=== PATIENT | male | born 1980 | race Hispanic/Latino ===

== ENCOUNTER 2020-01-12 21:02 | Emergency (ER) | payer SELFPAY ==
[~2020-01-12] VITALS: Ht 182.9 cm; Wt 83.9 kg
--- OUTSIDE RECORDS SUMMARY | 2020-01-12 21:33 | XMS REPORT | Clinical Summary ---
Author Author [facility] Organization [facility] Address Unknown Phone Unavailable Care Team Providers Care House Manager Name Role Phone Asked, No Pcp PCP Unavailable Allergies No Known Allergies Medications No known medications Active Problems Not on file Social History Date Tobacco Use Types Packs/Day Years Used Current Every Day Smoker Cigarettes 1 Smokeless Tobacco: Never Used Drinks/Week oz/Week Comments Alcohol Use occasional Yes Sex Assigned at Date Recorded Not on file Industry Job Start Date Occupation Not on file Not on file Not on file Travel End Travel History Travel Start No recent travel history available. 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
--- OUTSIDE RECORDS SUMMARY | 2020-01-12 21:33 | XMS REPORT | Clinical Summary ---
Author Author [facility] Organization [facility] Address Unknown Phone Unavailable Care Team Providers Care Solid Waste Landfill Technician Name Role Phone Michael Saul MD PCP Allergies No Known Allergies Medications End Date Status Medication Sig Dispensed Refills Start Date 01/05/2020 Discontinued (Therapy comple maura) risperiDONE (RISPERDAL) 2 Take 2 mg by 0 mg tablet mouth 2 times daily. 01/05/2020 Discontinued (Therapy comple maura) lithium carbonate Take 300 mg 0 (ESKALITH) 300 mg capsule by mouth 3 times daily with meals Take two capsules by mouth in the morning and three capsules at bedtime. . 01/05/2020 Discontinued (Therapy comple maura) gabapentin (NEURONTIN) Take 300 mg 0 300 mg capsule by mouth 3 times daily. 01/05/2020 Discontinued (Therapy comple maura) diphenhydrAMINE Take 25 mg by 0 (BENADRYL) 25 mg capsule mouth nightly at bedtime as needed for Sleep. 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 Bizarre behavior 01/04/2020 Encounters Care Team Description Date Type Specialty Constantine Hines MD Eckman, Jose Triana MD Bizarre behavior (Primary Dx); Psychosis, unspecified psychosis type; Methamphetamine abuse; Cannabis use disorder, mild, abuse; Right ankle pain, unspecified chronicity 01/03/2020 Emergency - 01/05/2020 after 01/11/2019 Immunizations Name Administration Dates Next Due Influenza, Vaccine 07/31/2018 (Deferred: Patie nt Refused) <FLUCELVAX>(Preservative- Free) Tdap (Tetanus Toxoid, 07/31/2018 Reduced Diphtheria Toxoid And Acellular Pertussis, Absorbed) Family History Relation Name Status Comments Brother 2 Alive Father Maternal Grandfather Maternal Grandmother Mother Alive Paternal Grandfather Paternal Grandmother Sister 1 Alive Social History Date Tobacco Use Types Packs/Day Years Used Current Every Day Smoker Cigarettes 1 Smokeless Tobacco: Never Used Tobacco Cessation: Ready to Quit: No; Co unseling Given: No Comments: smoking since age 14 years old Drinks/Week oz/Week Comments Alcohol Use quit drinking Not Currently Alcohol Habits Answer Date Recorded How often do you have a drink containing alcohol? Never 07/31/2018 How many drinks containing alcohol do you have on No t asked a typical day when you are drinking? How often do you have six or more drinks on one Not asked occasion? Food Insecurity Answer Date Recorded Within the past 12 months, you worried that your Never sheryl e 07/31/2018 food would run out before you got money to buy more. Within the past 12 months, the food you bought Never true 07/31/2018 just didn't last and you didn't have mo tenisha to get more. Sex Assigned at Date Recorded Not on file Industry Job Start Date Occupation Not on file Not on file Not on file Travel End Travel History Travel Start No recent travel history available. Date Recorded COVID-19 Exposure Response 01/03/2020 8:41 AM CDT In the last month, have you been in contact with No / Unsure someone who was confirmed or suspected to have Coronavirus / COVID-19? Last Filed Vital Signs Reading Time Taken Comments Vital Sign 134/72 01/05/2020 11:53 AM CDT Blood Pressure 60 01/05/2020 11:53 AM CDT Pulse 36.7 C (98.1 F) 01/05/2020 11:53 AM CDT Temperature 18 01/05/2020 11:53 AM CDT Respiratory Rate 100% 01/05/2020 11:53 AM CDT Oxygen Saturation - - Inhaled Oxygen Concentration - - Weight - - Height - - Body Mass Index Plan of Treatment Care Team Description Date Type Specialty Thor Ramirez MD [address] [place] [address] [phone] 01/23/2020 Office Visit Psychiatry Health Maintenance Due Date Last Done Comments IMM Influenza Seasonal 01/30/2020 Oct to June (>/= 19 yrs) Procedures Comments Procedure Name Priority Date/Time Associated Diag nosis CREATINE KINASE MB (CKMB) Add-on 01/04/2020 2:15 PM CDT CK, TOTAL Routine 01/04/2020 2:15 PM CDT URINALYSIS Routine 01/04/2020 2:14 PM CDT URINALYSIS Routine 01/04/2020 2:14 PM CDT XRAY ANKLE 3 VIEW MIN Routine 01/04/2020 Right an kle pain, 1:54 PM CDT unspecified chronicity IP CONSULT WITH INSIGHT Routine 01/04/2020 12:42 PM CDT CORONAVIRUS, COVID-19, STAT 01/03/2020 VALENTIN 9:33 PM CDT SEQUENTIAL COMPRESSION Routine 01/03/2020 PUMP 8:41 PM CDT LITHIUM Add-on 01/03/2020 4:54 PM CDT CREATINE KINASE MB (CKMB) STAT 01/03/2020 4:54 PM CDT CK, TOTAL STAT 01/03/2020 4:54 PM CDT CONSULT CLINICAL CASE STAT 01/03/2020 MANAGEMENT (RN/SW) 3:31 PM CDT URINE DRUG SCREEN STAT 01/03/2020 2:27 PM CDT URINALYSIS STAT 01/03/2020 2:26 PM CDT URINALYSIS STAT 01/03/2020 2:26 PM CDT CREATINE KINASE MB (CKMB) STAT 01/03/2020 12:45 PM CDT CK, TOTAL STAT 01/03/2020 12:45 PM CDT CREATINE KINASE MB (CKMB) STAT 01/03/2020 9:41 AM CDT FREE T4 Add-on 01/03/2020 9:41 AM CDT THYROID STIMULATING Add-on 01/03/2020 HORMONE (TSH) 9:41 AM CDT CBC STAT 01/03/2020 9:41 AM CDT HIV AG/AB COMBO STAT 01/03/2020 DIAGNOSTIC/SYMPTOMATIC 9:41 AM CDT CK, TOTAL STAT 01/03/2020 9:41 AM CDT BASIC METABOLIC PANEL STAT 01/03/2020 9:41 AM CDT CBC/DIFF STAT 01/03/2020 9:41 AM CDT after 01/11/2019 Results * CKMB (01/04/2020 2:15 PM CDT) Only the most recent of 4 results within the time period is included. CKMB 17.2 (H) 0.6 - 6.3 ng/mL [facility] CKMB Index 0.9 <=2.5 [facility] Specimen Blood Performing Organization Address [facility] one Number [facility] [address] [place] [address] * CK, Total (01/04/2020 2:15 PM CDT) Only the most recent of 4 results within the time period is included. CK 1,830 (H) 30 - 223 U/L [facility] Specimen Blood Performing Organization Address [facility] one Number [facility] [address] [place] [address] [phone] * Urinalysis (01/04/2020 2:14 PM CDT) Only the most recent of 2 results within the time period is included. Color Colorless Colorless, Straw, [facility] Clarity Clear Clear [facility] Spec [place], 1.002 1.001 - 1.035 [facility] pH, Ur 6.0 5.0 - 8.0 [facility] Protein, Ur Negative Negative mg/dL [facility] Glucose, Ur Negative Negative mg/dL [facility] Ketone, Ur Negative Negative mg/dL [facility] Bilirubin, Ur Negative Negative mg/dL [facility] Nitrite, Ur Negative Negative [facility] Leukocyte Negative Negative mg/dL [facility] Blood, Ur Negative Negative mg/dL [facility] Urobilinogen, <1.0 <1.0 EU/dL [facility] Specimen Urine Performing Organization Address [facility] one Number [facility] [address] [place] [address] [phone] * XRAY ANKLE 3 VIEW MIN (01/04/2020 1:54 PM CDT) Specimen Impressions Performed At IMPRESSION: SMS Healing fracture of the lateral malleol us in near-anatomic alignment. Medial malleolar transverse lucent line without surrounding inflammation, probably related to an ol d nonunion fracture. Mild widening of the medial clear space . If the report is "FINALIZED" it indicat es that the attending/staff radiologist has reviewed the images and agrees with the resident's interpretation. Dictated By: Carlos Eduardo Eduardo MD, 01/04/2020 11: 41 PM I have reviewed the study and agree wit h the findings in this report. Signed By: Alf Floyd MD, 01/05/2020 1 2:04 AM Narrative Performed At EXAMINATION: XRAY ANKLE 3 VIEW MIN [facility] SIDE: RIGHT HISTORY: ankle pain. Reports he fractur e ankle 3 months ago COMPARISON: None DISCUSSION: Healing fracture of the lateral malleol us in near-anatomic alignment with surrounding callus formation. Medial malleolar transverse lucent line without surrounding inflammation. Mild widening of the medial clear space . Otherwise, the joint spaces are well-maintained. The soft tissues are unremarkable. Procedure Note Interface, Rad/Mammog In - 01/05/2020 12:09 AM CDT EXAMINATION: XRAY ANKLE 3 VIEW MIN SIDE: RIGHT HISTORY: ankle pain. Reports he fracture ankle 3 months ago COMPARISON: None DISCUSSION: Healing fracture of the lateral malleolus in near-anatomic alignment with surrounding callus formation. Medial malleolar transverse lucent line without surrounding inflammation. Mild widening of the medial clear space. Otherwise, the joint spaces are well-maintained. The soft tissues are unremarkable. IMPRESSION IMPRESSION: Healing fracture of the lateral malleolus in near-anatomic alignment. 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 Mild widening of the medial clear space. If the report is "FINALIZED" it indicates that the attending/staff radiologist has reviewed the images and agrees with the resident's interpretation. Dictated By: Carlos Eduardo Eduardo MD, 01/04/2020 11:41 PM I have reviewed the study and agree with the findings in this report. Signed By: Alf Floyd MD, 01/05/2020 12:04 AM Performing Organization Address City/[facility] [place] one Number SMS * Coronavirus, CoVID-19, (VALENTIN) (01/03/2020 9:33 PM CDT) COVID-19 Not DetectedComment: Not Detected [facility] (SARS-COV-2) INTERPRETATION: No detectable LABORAT ORY levels of SARS-CoV-2 Coronavirus (COVID-19) were present in this patient's sample by this test. A not detected result does not exclude the possibility of active infection with this virus due to other factors that may affect the results such as a poorly collected sample, viral titers below the limit of detection of the assay, and the infrequent possibility of inhibitors in the sample. This result should be interpreted in conjunction with clinical, radiographic, and other laboratory findings and should not be used as the sole indicator of active infection with SARS-CoV-2 Coronavirus (COVID-19). Specimen Other (Specify in Comments) - Specimen from nasopharyngeal structure (specimen) Narrative Performed At COMMENT: This [employer] TaqPath COVID-19 roland l-time PCR Emergency Use [facility] Authorization (EUA) test was developed, and its performance characteristics determined by the [facility] diagnostic Laboratory. It has been validated by bridging studies under the FDA "Policy for Diagnostic Tests for Coronavirus Disease-2019 during the [facility] Emergency". This laboratory is certified under federal CLIA regulation s to perform this type of high complexity testing. Performing Organization Address City/[facility] [place] one Number [facility] [address] [place] [address] * Timpson (01/03/2020 4:54 PM CDT) Timpson <0.1 (L) 1.0 - 1.2 mmol/L [facility] Specimen Blood Performing Organization Address [facility] one Number [facility] [address] [place] [address] * Urine Drug Screen (01/03/2020 2:27 PM CDT) pH, Ur 5.0 [facility] pH, Ur 5.0 [facility] Opiate, Ur Negative Negative [facility] Comment: [facility] Calibrated Standard: Morphine Positive if urine level > or = 300 ng/dL Amphetamine Positive (A) Negative [facility] Comment: [facility] Calibrated Standard: D-Methamphetamine Positive if urine level > or = 1000 ng/mL Barbiturate Negative Negative [facility] Comment: [facility] Calibrated Standard: Secobarbital Positive if urine level is > or = 200 ng/mL Benzodiazepine Positive (A) Negative [facility] Comment: [facility] Calibrated Standard: Lormethazepam Positive if urine level is > or = 200 ng/mL Cocaine Negative Negative [facility] Comment: [facility] Calibrated Standard: Benzoylecgonine Positive if urine level > or = 300 ng/dL PCP Negative Negative [facility] Comment: [facility] Calibrated Standard: Phencyclidine Positive if urine level > or = 25 ng/dL Cannabinoid Positive (A) Negative [facility] Comment: [facility] Calibrated Standard: 11 nor-delta(9)-THC carboxylic acid Positive if urine level > or = 50 ng/mL Specimen Urine - Voided, urine Performing Organization Address [facility] one Number [facility] [address] [place] [address] [phone] * CBC/Diff (01/03/2020 9:41 AM CDT) WBC 13.5 (H) 4.5 - 12.0 K/uL [facility] RBC 4.50 (L) 4.60 - 6.20 M/uL [facility] Hemoglobin 13.7 (L) 14.0 - 18.0 g/dL [facility] Hematocrit 42.5 40.0 - 54.0 % [facility] MCV 94.4 (H) 82.0 - 92.0 fL [facility] MCH 30.4 27.0 - 31.0 pg [facility] MCHC 32.2 32.0 - 36.0 g/dL [facility] RDW 45.5 (H) 35.1 - 43.9 fL [facility] Platelet 245 150 - 400 K/uL [facility] Mean Platelet 9.8 9.4 - 12.4 fL [facility] Percent NRBC 0.0 % [facility] Neutrophil 71.2 (H) 34.0 - 67.9 % [facility] Lymphs 16.9 (L) 21.8 - 50.0 % [facility] Monocytes 10.7 5.3 - 12.0 % [facility] Eos 0.4 (L) 0.8 - 5.0 % [facility] Basos 0.5 0.2 - 1.2 % [facility] Immature 0.3 0.0 - 0.5 % [facility] Granul[facility] Neutrophils 9.63 (H) 1.78 - 5.36 K/uL [facility] (Absolute) [facility] Lymphs 2.29 1.32 - 3.57 K/uL [facility] (Absolute) [facility] Monocytes(Absol 1.44 (H) 0.30 - 0.82 K/uL [facility] kamila) [facility] Eos (Absolute) 0.05 0.04 - 0.54 K/uL [facility] Baso (Absolute) 0.07 0.01 - 0.08 K/uL [facility] Immature Grans 0.04 (H) 0.00 - 0.03 K/uL [facility] (Abs) [facility] Absolute NRBC 0.00 K/uL [facility] Specimen Blood Performing Organization Address [facility] [place] [facility] one Number [facility] [address] [place] [address] [phone] * TSH (01/03/2020 9:41 AM CDT) TSH 1.19 0.45 - 5.33 uIU/mL [facility] Specimen Blood Performing Organization Address [facility] [place] [facility] one Number [facility] [address] [place] [address] * Free T4 (01/03/2020 9:41 AM CDT) Free T4 1.08 0.64 - 1.42 ng/dl [facility] Specimen Blood Performing Organization Address [facility] one Number [facility] [address] [place] [address] [phone] * HIV-1/HIV-2 Diagnostic/Symptomatic (01/03/2020 9:41 AM CDT) HIV Ag/Ab Combo Negative Negative [facility] Specimen Blood Performing Organization Address [facility] one Number [facility] [address] [place] [address] [phone] * Basic Metabolic Panel (01/03/2020 9:41 AM CDT) Sodium 139 136 - 145 mmol/L [facility] Potassium 3.8 3.5 - 5.1 mmol/L [facility] Chloride 102 98 - 107 mmol/L [facility] CO2 26 21 - 31 mmol/L [facility] Urea Nitrogen 23.0 7.0 - 25.0 mg/dL [facility] Creatinine 1.0 0.7 - 1.3 mg/dL [facility] Glucose 93 70 - 110 mg/dL [facility] Calcium 9.8 8.6 - 10.3 mg/dL [facility] GFR, Estimated 84 (L) >=90 mL/min/1.73 m2 [facility] Anion Gap 11 5 - 16 mmol/L [facility] Specimen Blood Performing Organization Address [facility] one Number [facility] [address] [place] [address] [phone] after 01/11/2019 Insurance Type Payer Benefit Subscriber ID Effective Phone Address Plan / Dates Group [facility] SELF-PAY SELF-PAY xxxxxxxxx 2020-P [phone] [address] [place] [address] Advance Directives Date Inactivated Comments Code Status Date Activated 01/05/2020 3:40 PM Full Code 01/03/2020 8:41 PM
--- OUTSIDE RECORDS SUMMARY | 2020-01-12 21:33 | XMS REPORT | Continuity of Care Document ---
Author Author [facility] t Organization [facility] Address [address] [place] [address] Phone Unavailable Care Team Providers Care Product Coordinator Name Role Phone Asked, Pcp No PCP Unavailable Donny SANDERSON, Constantine Attphys Kamilah Selby MD Attphys Payers Payer Name Policy Type Policy Number Effective Date Expiration Date Kati jacobs [facility] [id number] UNSCREENEDxxxxxxxx [id number] [place] [address] xxxxxxxxx 2020 00:00:00 [facility] Problems Condition Name Condition Details Condition Category Status Onset Date Resolution Date Last Treatment Date Treating Clinician Comments Source Polysubstance abuse Polysubstance abuse Disease Active 2020-01-04 00:00 :00 [facility] Non-traumatic rhabdomyolysis Non-traumatic rhabdomyolysis Disease Active 2020-01-04 00:00:00 Ronald Canseco ealthilda Right ankle pain Right ankle pain Disease Active 2020-01-04 00:00:00 [facility] Amphetamine intoxication delirium Amphetamine intoxication delir ium Disease Active 2020-01-03 00:00:00 [facility] Cannabis use disorder, mild, abuse Cannabis use disorder, mild, abuse Disease Active [facility] History of Past Illness Condition Name Condition Details Condition Category Status Onset Date Resolution Date Last Treatment Date Treating Clinician Comments Source Psychosis Psychosis Disease Resolved 2020-01-04 00:00:00 2019-12 14:37:00 [facility] Methamphetamine abuse Methamphetamine abuse Disease Resolved 2020-01-04 00:00:00 2020-01-04 14:37:02 [facility] Bizarre behavior Bizarre behavior Disease Resolved 01-03 00:00:00 2020-01-04 14:37:07 [facility] Allergies, Adverse Reactions, Alerts Allergy Name Allergy Type Status Severity Reaction(s) Onset Date Inacti ve Date Treating Clinician Comments Source No Known Allergies DA Active U 2018-01-25 00:00:00 [facility] Social History Social Habit Start Date Stop Date Quantity Comments Source History of tobacco use Cigarette Smoker [facility] SDGA Alcohol Std Drinks [facility] History SDOH Alcohol Binge [facility] Sex Assigned At [facility] Exposure to SARS-CoV-2 (event) Not sure [facility] Cigarettes smoked current (pack per day) - Reported 00:00:00 2020-01-04 00:00:00 [facility] Alcohol intake 2020-01-04 00:00:00 2020-01-04 00:00:00 Ex-drinker (fi nding) [facility] History SDOH Alcohol Frequency 2018-07-31 00:00:00 2018-07-31 00:00:0 0 1 [facility] History SDOH Food Worry 2018-07-31 00:00:00 2018-07-31 00:00:00 1 [facility] History SDOH Food Scarcity 2018-07-31 00:00:00 2018-07-31 00:00:00 1 [facility] Tobacco Comment 2018-07-31 00:00:00 2018-07-31 00:00:00 smoking since age 14 years old [facility] Alcohol Comment 2018-07-31 00:00:00 2018-07-31 00:00:00 quit dri nking 12/30/2017 [facility] Smoking Status Start Date Stop Date Source Current every day smoker 2020-01-04 00:00:00 [facility] Medications Ordered Medication Name Filled Medication Name Start Date Stop Da te Current Medication? Ordering Clinician Indication Dosage Frequency Signature (SIG) Comments Components Source risperiDONE (RISPERDAL) 2 mg tablet 2020-01-05 12:52:2 4 2020-01-05 00:00:00 No 2mg Q.5D Take 2 mg by mouth 2 times daily. [facility] lithium carbonate (ESKALITH) 300 mg capsule 2019 12:52:24 2020-01-05 00:00:00 No 300mg Q.[id number] Ta ke 300 mg by mouth 3 times daily with meals Take two capsules by mouth in the morning and three capsules at bedtime. . [facility] gabapentin (NEURONTIN) 300 mg capsule 2020-01-05 12:52 :24 2020-01-05 00:00:00 No 300mg Take 300 mg by mouth 3 times daily. [facility] diphenhydrAMINE (BENADRYL) 25 mg capsule 2019-12 12:52:24 2020-01-05 00:00:00 No 25mg Take 25 mg by mouth nightly at bedtime as needed for Sleep. [facility] Immunizations Ordered Immunization Name Filled Immunization Name Date Status Comments Source Tdap (Tetanus Toxoid, Reduced Diphtheria Toxoid And Acellular Pertussis, Absorbed) 2018-07-31 00:00:00 Completed [facility] Vital Signs Vital Name Observation Time Observation Value Comments Source Systolic blood pressure 2020-01-05 11:53:00 134 mm[Hg] [facility] Diastolic blood pressure 2020-01-05 11:53:00 72 mm[Hg] [facility] Heart rate 2020-01-05 11:53:00 60 /min [facility] Body temperature 2020-01-05 11:53:00 36.72 Hanh Adis is [facility] Respiratory rate 2020-01-05 11:53:00 18 /min Adis is [facility] Oxygen saturation in Arterial blood by Pulse oximetry 01-04 11:53:00 100 /min [facility] Procedures Procedure Date / Time Performed Performing Clinician Sourkathy e CK, TOTAL 2020-01-04 14:15:00 Jose Selby [facility] CREATINE KINASE MB (CKMB) 2020-01-04 14:15:00 Jose Selby [facility] URINALYSIS 2020-01-04 14:14:00 Jose Selby anne marieh URINALYSIS 2020-01-04 14:14:00 Jose Selby angel XRAY ANKLE 3 VIEW MIN 2020-01-04 13:54:45 Jose Selby [facility] IP CONSULT WITH INSIGHT 2020-01-04 12:42:05 Jose Selby [facility] CORONAVIRUS, COVID-19, VALENTIN 2020-01-03 21:33:00 [facility]QU[facility] PUMP 2020-01-03 20:41:27 [facility] CK, TOTAL 2020-01-03 16:54:00 [facility] CREATINE KINASE MB (CKMB) 2020-01-03 16:54:00 Gladys Garcia [facility] LITHIUM 2020-01-03 16:54:00 Jose Selby [facility] anne marie CONSULT CLINICAL CASE MANAGEMENT (RN/SW) 2020-01-03 15:31:52 Olivia Casillas [facility] URINE DRUG SCREEN 2020-01-03 14:27:00 [facility] 2020-01-03 14:26:00 [facility] 2020-01-03 14:26:00 [facility] CK, TOTAL 2020-01-03 12:45:00 [facility] CREATINE KINASE MB (CKMB) 2020-01-03 12:45:00 Gladys Garcia [facility] CBC/DIFF 2020-01-03 09:41:00 [facility] METABOL[facility] PANEL 2020-01-03 09:41:00 Radha [facility] CK, TOTAL 2020-01-03 09:41:00 [facility] HIV AG/AB COMBO DIAGNOSTIC/SYMPTOMATIC 2020-01-03 09:41:00 Radha [facility] CBC 2020-01-03 09:41:00 [facility] THYROID STIMULATING HORMONE (TSH) 2020-01-03 09:41:00 Arlyn Garcia [facility] FREE T4 2020-01-03 09:41:00 Radha Gladys Ronald Garibayt hilda CREATINE KINASE MB (CKMB) 2020-01-03 09:41:00 Gladys [facility] Planned Activity Planned Date Details Comments Source Future Scheduled Test 2020-01-30 00:00:00 INFLUENZA VACCINE [code = INFLUENZA VACCINE] [facility] Future Scheduled Test 2020-01-30 00:00:00 IMM Influenza Seas onal Jan to June (>/= 19 yrs) [code = IMM Influenza Seasonal Jan to June (>/= 19 yrs)] [facility] Encounters Start Date/Time End Date/Time Encounter Type Admission Type Attendi [facility] Care Department Encounter ID Source 2018-07-31 10:07:15 2018-07-31 10:07:15 Outpatient [facility] [id number] [facility] 2018-07-31 08:47:18 2018-07-31 08:47:18 Outpatient [facility] [id number] [facility] 2018-01-18 00:00:00 2018-01-19 00:00:00 [id number] 2017-10-02 00:00:00 2017-10-02 00:00:00 [facility] [id number] Results Test Description Test Time Test Comments Results Result Comments Source XRAY ANKLE 3 VIEW MIN 2020-01-05 00:04:23 IMPRES SIXTO: Healing fracture of the lateral malleolus in near-anatomic alignment. 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 If the report is "FINALIZED" it indicates that the attending/staffradiologist has reviewed the images and agrees with the resident'sinterpretation. Dictated By: Carlos Eduardo Eduardo MD, 01/04/2020 11:41 PM I have reviewed the study and agree with the findings in this report. Signed By: Alf Floyd MD, 01/05/2020 12:04 AM Interface, Rad/Mammog In - 01/05/2020 12:09 AM CDTEXAMINATION: XRAY ANKLE 3 VIEW MINSIDE: RIGHTHISTORY: ankle pain. Reports he fracture ankle 3 months ago COMPARISON: None DISCUSSION: Healing fracture of the lateral malleolus in near-anatomic alignm entwith surrounding callus formation.Medial malleolar transverse lucent line without surroundinginflammation.Mild widening of the medial clear space. Otherwise, the joint spaces arewell-maintained.The soft tissues are unremarkable.IMPRESSIONIMPRESSION: Healing fracture of the lateral malleolus in near-anatomic alignment. 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.Mild widening of the medial clear space.If the report is "FINALIZED" it indicates that the attending/staffradiologist has reviewed the images and agrees with the resident'sinterpretation.Dictated By: Carlos Eduardo Eduardo MD, 01/04/2020 11:41 PMI have reviewed the study and agree with the findings in this report.Signed By: Alf Floyd MD, 01/05/2020 12:04 AM [facility] CKMB 2020-01-04 17:22:00 Test Item CKMB (test code = 01446959) 17.2 ng/mL 0.6-6.3 H CKMB Index (test code = 47477450) 0.9 <=2.5 Lab Interpretation (test code = 34977-9) Abnormal [facility], [id number] 15:31:00* Test Item Value Reference Range Interpretation Comments CK (test code = 65457961) 1830 U/L 30-223 H Lab Interpretation (test code = 46148-9) Abnormal [facility] CenterZkkcngAvxlcuprvm9624-35-33 15:15:00* Test Item Value Reference Range Interpretation Comments Color (test code = 66967953) Colorless Colorless, Straw, Yellow Clarity (test code = 20147064) Clear Clear Spec Bailey, Ur (test code = 37301292) 1.002 1.001-1.035 pH, Ur (test code = 34266603) 6.0 5.0-8.0 Protein, Ur (test code = 21752221) Negative Negative mg/dL Glucose, Ur (test code = 48263536) Negative Negative mg/dL Ketone, Ur (test code = 97552947) Negative Negative mg/dL Bilirubin, Ur (test code = 31057685) Negative Negative mg/dL Nitrite, Ur (test code = 34561656) Negative Negative Leukocyte (test code = 50788689) Negative Negative mg/dL Blood, Ur (test code = 58022200) Negative Negative mg/dL Urobilinogen, Ur (test code = 69863007) <1.0 <1.0 EU/dL Lab Interpretation (test code = 48001-9) Normal [facility] [id number] 12:29:00* Test Item Value Reference Range Interpretation Comments [place] (test code = 13030200) <0.1 1-1.2 L Lab Interpretation (test code = 24354-5) Abnormal [facility] CenterCoronavirus, CoVID-19, (VALENTIN)2020-01-04 06:53:00* Test Item Value Reference Range Interpretation Comments COVID-19 (SARS-COV-2) (test code = 37329-5) Not Detected Not Detect ed INTERPRETATION: No detectable levels of SARS-CoV-2 Coronavirus (COVID-19) were present [...] of active infection with SARS-CoV-2 Coronavirus (COVID-19). DILLAN (test code = DILLAN) COMMENT: This [employer] Online TaqPath COVID-19 real- time PCR Emergency Use Authorization (EUA) test was developed, and its performance characteristics determined by the [facility] molecular di agnostic Laboratory. It has been validated by bridging studies under the FDA "Policy for Diagnostic Tests for Coronavirus Disease-2019 during the Public Health Emergency". This laboratory is certified under federal CLIA regulations to perform this type of high complexity testing. Lab Interpretation (test code = 63502-8) Normal [facility] Center[facility] Drug [id number] 16:59:00* Test Item Value Reference Range Interpretation Comments pH, Ur (test code = 54670363) 5.0 pH, Ur (test code = 01341750) 5.0 Opiate, Ur (test code = 16021-1) Negative Negative Calibrated Standard: Morphine Positive if urine level > or = 300 ng/dL Amphetamine (test code = 64684-6) Positive Negative A Calibrated Standard: D- Methamphetamine Positive if urine level > or = 1000 ng/mL Barbiturate (test code = 61999-2) Negative Negative Calibrated Standard: Secobarbital Positive if urine level is > or = 200 ng/mL Benzodiazepine (test code = 24980-0) Positive Negative A Calibrated Standard: Lormethazepam Positive if urine level is > or = 200 ng/mL Cocaine (test code = 09800-5) Negative Negative Calibrated Standard: Benzoylecgonine Positive if urine level > or = 300 ng/dL PCP (test code = 46795-8) Negative Negative Ca librated Standard: Phencyclidine Positive if urine level > or = 25 ng/dL Cannabinoid (test code = 46873-3) Positive Negative A Calibrated Standard: 11 nor-delta(9)-THC carboxylic acid Positive if urine level > or = 50 ng/mL Lab Interpretation (test code = 49781-4) Abnormal [facility] [id number] 11:54:00* Test Item Value Reference Range Interpretation Comments Free T4 (test code = 92972161) 1.08 ng/dl 0.64-1.42 Lab Interpretation (test code = 31389-0) Normal [facility] [id number] 11:52:00* Test Item Value Reference Range Interpretation Comments TSH (test code = 37031785) 1.19 0.45- 5.33 uIU/mL Lab Interpretation (test code = 73154-2) Normal [facility] CenterHIV-1/HIV-2 Diagnostic/[id number] 10:53:00* Test Item Value Reference Range Interpretation Comments HIV Ag/Ab Combo (test code = 61579-9) Negative Negative Lab Interpretation (test code = 19698-2) Normal [facility] Metabolic [id number] 10:39:00* Test Item Value Reference Range Interpretation Comments Sodium (test code = 2951-2) 139 mmol/L 136-145 Potassium (test code = 2823-3) 3.8 mmol/L 3.5-5.1 Chloride (test code = 2075-0) 102 mmol/L 98-107 CO2 (test code = 75436222) 26 mmol/L 21-31 Urea Nitrogen (test code = 32959752) 23.0 mg/dL 7-25 Creatinine (test code = 95769389) 1.0 mg/dL 0.7-1.3 Glucose (test code = 78400573) 93 mg/dL 70-110 Calcium (test code = 50088189) 9.8 mg/dL 8.6-10.3 GFR, Estimated (test code = 74102052) 84 >=90 mL/min/1.73 m2 L Anion Gap (test code = 01276988) 11 mmol/L 5-16 Lab Interpretation (test code = 80404-2) Abnormal [facility]/[id number] 10:13:00* Test Item Value Reference Range Interpretation Comments WBC (test code = 6690-2) 13.5 K/uL 4.5-12 H RBC (test code = 789-8) 4.50 4.60- 6.20 M/uL L Hemoglobin (test code = 718-7) 13.7 g/dL 14-18 L Hematocrit (test code = 4544-3) 42.5 % 40-54 MCV (test code = 787-2) 94.4 fL 82-92 H MCH (test code = 785-6) 30.4 pg 27-31 MCHC (test code = 786-4) 32.2 g/dL 32-36 RDW (test code = 93133-7) 45.5 fL 35.1-43.9 H Platelet (test code = 777-3) 245 K/uL 150-400 Mean Platelet Volume (test code = 20752-8) 9.8 fL 9.4-12.4 Percent NRBC (test code = 05973587) 0.0 % Neutrophil (test code = 770-8) 71.2 % 34-67.9 H Lymphs (test code = 736-9) 16.9 % 21.8-50 L Monocytes (test code = 5905-5) 10.7 % 5.3-12 Eos (test code = 713-8) 0.4 % 0.8-5 L Basos (test code = 706-2) 0.5 % 0.2-1.2 Immature Granulocytes (test code = 40168412) 0.3 % 0-0.5 Neutrophils (Absolute) (test code = 21543790) 9.63 K/uL 1.78-5.3 6 H Lymphs (Absolute) (test code = 57574892) 2.29 K/uL 1.32-3.57 Monocytes(Absolute) (test code = 13213179) 1.44 K/uL 0.3-0.82 H Eos (Absolute) (test code = 61064292) 0.05 K/uL 0.04-0.54 Baso (Absolute) (test code = 35449709) 0.07 K/uL 0.01-0.08 Immature Grans (Abs) (test code = 88997477) 0.04 K/uL 0-0.03 H Absolute NRBC (test code = 48928815) 0.00 K/uL Lab Interpretation (test code = 22138-1) [facility]normal [facility] [id number] 02:51:00* Test Item Value Reference Range Interpretation Comments UA COLOR (test code = COLU) Light-Yellow YELLOW UA APPEARANCE (test code = APPU) CLEAR CLEAR UA GLUCOSE DIPSTICK (test code = DGLUU) NEGATIVE mg/dL NEGATIVE UA BILIRUBIN DIPSTICK (test code = BILU) NEGATIVE mg/dL NEGATIVE UA KETONE DIPSTICK (test code = KETU) TRACE mg/dL NEGATIVE A UA SPECIFIC GRAVITY (test code = SGU) 1.010 1.001-1.035 UA BLOOD DIPSTICK (test code = LANE) 0.03 mg/dL (Trace) mg/dL NEGATI VE A UA PH DIPSTICK (test code = BRIANNA) 5.0 5.0-8.0 UA PROTEIN DIPSTICK (test code = PROU) NEGATIVE mg/dL NEGATIVE UA UROBILINIOGEN DIPSTICK (test code = URO) Normal mg/dL NEGATIVE UA NITRITE DIPSTICK (test code = SHAYNA) NEGATIVE NEGATIVE UA LEUKOCYTE ESTERASE W REFLEX (test code = LEUUR) NEGATIVE Arian/uL NEGATIVE UA WBC (test code = WBCU) 0-5 per HPF 0-5 UA RBC (test code = RBCU) 0-2 #/HPF 0-5 UA EPITHELIAL CELLS (test code = EPIU) FEW per HPF FEW UA BACTERIA (test code = BACU) NONE SEEN #/HPF NONE UA MUCUS (test code = MUCU) FEW #/LPF FEW Urine Source? Clean CatchDRUGS OF ABUSE SCREEN [id number] 02:51:00* Test Item Value Reference Range Interpretation Comments URN COCAINE (test code = COCAURN) NEGATIVE <300 ng/mL URN CANNABINOIDS (test code = CANNABURN) POSITIVE <50 ng/mL A This test provides only a preliminary test result. A morespecific alternate chemical method must be used in order toobtain a confirmed analytical result. Gas chromatography/mass spectrometry (GC/MS) is thepreferred confirmatory method. Other chemical confirmationmethods are available. Clinical consideration and professional judgment should be applied to any drug of abusetest result, particularly when preliminary positive resultsare used.Unconfirmed screening results must not be used fornon-medical purposes (e.g., employment testing, legaltesting). URN AMPHETAMINE (test code = AMPHETURN) NEGATIVE <1000 ng/mL URN BARBITURATE (test code = BARBITURN) NEGATIVE <200 ng/mL URN BENZODIAZEPINE (test code = BENZOURN) NEGATIVE <200 ng/mL URN OPIATES (test code = OPIATURN) NEGATIVE <300 ng/mL URN PHENCYCLIDINE (PCP) (test code = PHENCURN) NEGATIVE <25 ng/ mL URN METHADONE (test code = METHAURN) NEGATIVE <300 ng/mL Urine Source? Clean CatchURINALYSIS [id number] 02:28:00* Test Item Value Reference Range Interpretation Comments UA COLOR (test code = COLU) Light-Yellow YELLOW UA APPEARANCE (test code = APPU) CLEAR CLEAR UA GLUCOSE DIPSTICK (test code = DGLUU) NEGATIVE mg/dL NEGATIVE UA BILIRUBIN DIPSTICK (test code = BILU) NEGATIVE mg/dL NEGATIVE UA KETONE DIPSTICK (test code = KETU) TRACE mg/dL NEGATIVE A UA SPECIFIC GRAVITY (test code = SGU) 1.010 1.001-1.035 UA BLOOD DIPSTICK (test code = LANE) 0.03 mg/dL (Trace) mg/dL NEGATI VE A UA PH DIPSTICK (test code = BRIANNA) 5.0 5.0-8.0 UA PROTEIN DIPSTICK (test code = PROU) NEGATIVE mg/dL NEGATIVE UA UROBILINIOGEN DIPSTICK (test code = URO) Normal mg/dL NEGATIVE UA NITRITE DIPSTICK (test code = SHAYNA) NEGATIVE NEGATIVE UA LEUKOCYTE ESTERASE W REFLEX (test code = LEUUR) NEGATIVE Arian/uL NEGATIVE UA WBC (test code = WBCU) 0-5 per HPF 0-5 UA RBC (test code = RBCU) 0-2 #/HPF 0-5 UA EPITHELIAL CELLS (test code = EPIU) FEW per HPF FEW UA BACTERIA (test code = BACU) NONE SEEN #/HPF NONE UA MUCUS (test code = MUCU) FEW #/LPF FEW Urine Source? Clean CatchDRUGS OF ABUSE SCREEN [id number] 02:28:00* Test Item Value Reference Range Interpretation Comments URN COCAINE (test code = COCAURN) <300 ng/mL URN CANNABINOIDS (test code = CANNABURN) <50 ng/mL URN AMPHETAMINE (test code = AMPHETURN) <1000 ng/mL URN BARBITURATE (test code = BARBITURN) <200 ng/mL URN BENZODIAZEPINE (test code = BENZOURN) <200 ng/mL URN OPIATES (test code = OPIATURN) <300 ng/mL URN PHENCYCLIDINE (PCP) (test code = PHENCURN) <25 ng/ mL URN METHADONE (test code = METHAURN) <300 ng/mL Urine Source? Clean CatchBASIC METABOLIC [id number] 02:22:00* Test Item Value Reference Range Interpretation Comments SODIUM (test code = NA) 140 mmol/L 136-145 N POTASSIUM (test code = K) 4.3 mmol/L 3.5-5.1 N CHLORIDE (test code = CL) 110.0 mmol/L 98-107 H CARBON DIOXIDE (test code = CO2) 20.0 mmol/L 21-32 L ANION GAP (test code = GAP) 14.3 10-20 N GLUCOSE (test code = GLU) 97 mg/dL 74-106 N BLOOD UREA NITROGEN (test code = BUN) 8 mg/dL 7-18 N GLOMERULAR FILTRATION RATE (test code = GFR) > 60 mL/min >=60 Estimated GFR by using Modified MDRD formula.Chronic kidney disease is defined as either kidney damageor GFR <60 mL/min/1.73 m2 for >3 months. CREATININE (test code = CREAT) 0.80 mg/dL 0.7-1.3 N BUN/CREATININE RATIO (test code = BUN/CREA) 10.0 10-20 N CALCIUM (test code = CA) 8.6 mg/dL 8.5-10.1 N HEPATIC FUNCTION [id number] 02:22:00* Test Item Value Reference Range Interpretation Comments TOTAL PROTEIN (test code = PROT) 7.0 gram/dL 6.4-8.2 N ALBUMIN (test code = ALB) 3.7 g/dL 3.4-5.0 N GLOBULIN (test code = GLOB) 3.3 gram/dL 2.7-4.2 N ALBUMIN/GLOBULIN RATIO (test code = A/G) 1.1 0.75-1.50 N BILIRUBIN TOTAL (test code = BILT) 0.50 mg/dL 0.0-1.0 N BILIRUBIN DIRECT (test code = BILD) 0.13 mg/dL 0.0-0.20 N SGOT/AST (test code = AST) 33 IUnit/L 15-37 N SGPT/ALT (test code = ALT) 47 IUnit/L 12-78 N ALKALINE PHOSPHATASE TOTAL (test code = ALKP) 110 IUnit/L 45-117 N Note change in reference range due to change in reagent. [id number] 02:22:00* Test Item Value Reference Range Interpretation Comments ACETAMINOPHEN (test code = ACET) < 10 mcg/mL 10-30 L A RANGE OF 10-30 mcg/mL IS A THERAPEUTIC RANGE. TOXIC CONCENTRATIONS: >150 mcg/mL AT 4 HOURS AFTER INGESTION >= 50 mcg/mL AT 12 HOURS AFTER INGESTION [id number] 02:22:00* Test Item Value Reference Range Interpretation Comments SALICYLATE (test code = CAROLINA) 3.0 mg/dL 2.8-20.0 N [id number] 02:22:00* Test Item Value Reference Range Interpretation Comments ALCOHOL (test code = ALC) 91 mg/dL 0.0-3.0 H -- INTERPRETIVE DATA NOTE: POSITIVE SCREENING RESULTS SHOULD BE CONSIDERED PRESUMPTIVE.WHEN COLLECTED FOR MEDICAL PURPOSES ONLY. SPECIMEN WILL NOTBE COLLECTED BY CHAIN OF CUSTODY.IF A CONFIRMATION OF POSITIVE RESULTS IS DESIRED, ACONFIRMATION TEST MUST BE REQUESTED BY THE PHYSICIAN AT ANADDITIONAL CHARGE TO THE PATIENT. BASIC METABOLIC [id number] 02:18:00* Test Item Value Reference Range Interpretation Comments SODIUM (test code = NA) 140 mmol/L 136-145 N POTASSIUM (test code = K) 4.3 mmol/L 3.5-5.1 N CHLORIDE (test code = CL) 110.0 mmol/L 98-107 H CARBON DIOXIDE (test code = CO2) mmol/L 21-32 ANION GAP (test code = GAP) 10-20 GLUCOSE (test code = GLU) mg/dL 74-106 BLOOD UREA NITROGEN (test code = BUN) mg/dL 7-18 GLOMERULAR FILTRATION RATE (test code = GFR) mL/min >=60 CREATININE (test code = CREAT) mg/dL 0.7-1.3 BUN/CREATININE RATIO (test code = BUN/CREA) 10-20 CALCIUM (test code = CA) mg/dL 8.5-10.1 HEPATIC FUNCTION [id number] 02:18:00* Test Item Value Reference Range Interpretation Comments TOTAL PROTEIN (test code = PROT) gram/dL 6.4-8.2 ALBUMIN (test code = ALB) g/dL 3.4-5.0 GLOBULIN (test code = GLOB) gram/dL 2.7-4.2 ALBUMIN/GLOBULIN RATIO (test code = A/G) 0.75-1.50 BILIRUBIN TOTAL (test code = BILT) mg/dL 0.0-1.0 BILIRUBIN DIRECT (test code = BILD) mg/dL 0.0-0.20 SGOT/AST (test code = AST) IUnit/L 15-37 SGPT/ALT (test code = ALT) IUnit/L 12-78 ALKALINE PHOSPHATASE TOTAL (test code = ALKP) IUnit/L 45-117 [id number] 02:18:00* Test Item Value Reference Range Interpretation Comments ACETAMINOPHEN (test code = ACET) mcg/mL 10-30 [id number] 02:18:00* Test Item Value Reference Range Interpretation Comments SALICYLATE (test code = CAROLINA) mg/dL 2.8-20.0 [id number] 02:18:00* Test Item Value Reference Range Interpretation Comments ALCOHOL (test code = ALC) mg/dL 0-3 CBC W/O [id number] 01:53:00* Test Item Value Reference Range Interpretation Comments WHITE BLOOD CELL (test code = WBC) 12.1 K/mm3 4.5-12.5 N RED BLOOD CELL (test code = RBC) 4.48 mill/mm3 4.0-5.8 N HEMOGLOBIN (test code = HGB) 13.9 gram/dL 13.0-17.5 N HEMATOCRIT (test code = HCT) 41.5 % 42.0-52.0 L MEAN CELL VOLUME (test code = MCV) 92.6 fL 80-98 N MEAN CELL HGB (test code = MCH) 31.0 picogram 27.0-33.0 N MEAN CELL HGB CONCETRATION (test code = MCHC) 33.5 gram/dL 33.0-36. 0 N RED CELL DISTRIBUTION WIDTH (test code = RDW) 13.9 % 11.6-16. 2 N PLATELET COUNT (test code = PLT) 292 K/mm3 150-450 N MEAN PLATELET VOLUME (test code = MPV) 8.9 fL 6.7-11.0 N CBC W/O [id number] 01:51:00* Test Item Value Reference Range Interpretation Comments WHITE BLOOD CELL (test code = WBC) K/mm3 4.5-12.5 RED BLOOD CELL (test code = RBC) mill/mm3 4.0-5.8 HEMOGLOBIN (test code = HGB) 13.9 gram/dL 13.0-17.5 N HEMATOCRIT (test code = HCT) % 42.0-52.0 MEAN CELL VOLUME (test code = MCV) fL 80-98 MEAN CELL HGB (test code = MCH) picogram 27.0-33.0 MEAN CELL HGB CONCETRATION (test code = MCHC) gram/dL 33.0-36. 0 RED CELL DISTRIBUTION WIDTH (test code = RDW) % 11.6-16. 2 PLATELET COUNT (test code = PLT) K/mm3 150-450 MEAN PLATELET VOLUME (test code = MPV) fL 6.7-11.0 - XR TIBIA/FIBULA 2 V [id number] 20:39:00 [facility] [place] [facility] 1980 Age/S:39 /M [address] [facility] Unit#:[id number] Loc: [place] [address] Phys: Stephanie Varma MD Dis Date: PHONE #: [phone] Status: REG ER FAX #: [phone] Exam Date: 07/25/2019 Reason: fall EXAMS: CPT CODE: [id number] XR TIBIA/FIBULA 2 [place] [id number] HISTORY: Pain. COMPARISON: None available. Location: TH. 3 views of the left ankle and foot: The forefoot is without fracture. 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 The tarsal metatarsal joint spaces and the intertarsal joint spaces are preserved. Acute traumatic transverse fracture of the medial malleolus with mild inferior displacement. Intra- articular extension. Segmental fracture of the distal fibular lateral malleolus with intra-articular extension. Mild posterior displacement of the distal fracture fragment. Ankle joint fluid. Ankle mortise is disrupted with medial displacement of the tibia in relation to the talus. No osteochondral lesions of the talus. IMPRESSION: Acute traumatic transverse fracture of the medial malleolus with intra-articular extension and mild inferior displacement. Segmental oblique fracture of the distal fibular lateral malleolus with intra-articular extension and slight dorsal displacement of the distal fracture fragment. Disrupted ankle mortise with medial displacement of the tibia in relation to the talus. Joint fluid. Forefoot is unremarkable. AP and lateral view of the right leg: The knee joint is preserved. No knee joint fluid. Again noted fracture of the medial malleolus with inferior displacement and intra-articular extension and segmental fractures of the distal fibula and lateral malleolus with slight dorsal displacement the fracture fragment. Joint fluid. IMPRESSION: Fra ctures of the medial and the lateral malleolus as described. No knee fr acture. PAGE 1 Signed Report (CON TINUED) Name: TASHI PANTOJA [facility] : 1980 Age/S:39 /M [address] [facility]#:[id number] Loc: [place] [address] Phys: Stephanie Gutiérrez MD [address] Dis Date: PHONE #: [phone] Status: REG ER FAX #: [phone] Exam Date: 07/25/2019 Reason: fall EXAMS: CPT CODE: [id number] XR TIBIA/FIBULA 2 V RT [id number] <Continued> at 2038 Reported and signed by: Jase Amador M.D. CC: Technologist: RELL LANCASTER RT(R),RDMS,CT Trnscrpt Data: 07/25/2019 (2038) [email or web address] Orig Print D/T: S: 07/25/2019 (2041) PAGE 2 Signed Report - XR ANKLE 3 + V [id number] 20:39:00 Name: TASHI PANTOJA [facility] : 1980 Age/S:39 /M [address] [facility] Unit#:[id number] Loc: [place] [address] Phys: Stephanie Varma MD Dis Date: PHONE #: [phone] Status: REG ER FAX #: [phone] Exam Date: 07/25/2019 Reason: fall EXAMS: CPT CODE: [id number] XR ANKLE 3 + V RT [id number] HISTORY: Pain. COMPARISON: None available. Location: TH. 3 views of the left ankle and foot: The forefoot is without fracture. 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 The tarsal metatarsal joint spaces and the intertarsal joint spaces are preserved. Acute traumatic transverse fracture of the medial malleolus with mild inferior displacement. Intra-articular extension. Segmental fracture of the distal fibular lateral malleolus with intra-articular extension. Mild po sterior displacement of the distal fracture fragment. Ankle joint fluid. Ankle mortise is disrupted with medial displacement of the tibia in relat ion to the talus. No osteochondral lesions of the talus. IMPRESSION: Acute traumatic transverse fracture of the medial malleolus with intra-articular extension and mild inferior displacement. Segmental oblique fracture of the distal fibular lateral mall eolus with intra-articular extension and slight dorsal displacement of t he distal fracture fragment. Disrupted ankle mortise with medial displacement of the tibia in relation to the talus. Joint fluid. For efoot is unremarkable. AP and lateral view of the ri t leg: The knee joint is preserved. No knee joint fluid. A gain noted fracture of the medial malleolus with inferior displacement a nd intra-articular extension and segmental fractures of the distal fibul a and lateral malleolus with slight dorsal displacement the fracture fragment. Joint fluid. IMPRESSION: Fra ctures of the medial and the lateral malleolus as described. No knee fr acture. PAGE 1 Signed Report (CON TINUED) Name: TASHI PANTOJA [facility] : 1980 Age/S:39 /M [address] [facility] Uni t#:[id number] Loc: [place] [address] Phys: Stephanie Gutiérrez MD [address] Dis Date: PHONE #: [phone] Status: REG ER FAX #: [phone] Exam Date: 07/25/2019 Reason: fall EXAMS: CPT CODE: [id number] XR ANKLE 3 + V RT [id number] <Continued> at 2038 Reported and signed by: Jase Amador M.D. CC: Technologist: RELL LANCASTER(R),RDMS,CT Trnsct Data: 07/25/2019 (2038) [email or web address] Orig Print D/T: S: 07/25/2019 (2041) PAGE 2 Signed Report - XR FOOT 3 + V [id number] 20:39:00 Name: TASHI PANTOJA [facility] : 1980 Age/S:39 /M [address] [facility] Unit#:[id number] Loc: [place] [address] Phys: Stephanie Varma MD Dis Date: PHONE #: [phone] Status: REG ER FAX #: [phone] Exam Date: 07/25/2019 Reason: fall EXAMS: CPT CODE: [id number] XR FOOT 3 + V RT [id number] HISTORY: Pain. COMPARISON: None available. Location: TH. 3 views of the left ankle and foot: The forefoot is without fracture. 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 The tarsal metatarsal joint spaces and the intertarsal joint spaces are preserved. Acute traumatic transverse fracture of the medial malleolus with mild inferior displacement. Intra-articular extension. Segmental fracture of the distal fibular lateral malleolus with intra-articular extension. Mild po sterior displacement of the distal fracture fragment. Ankle joint fluid. Ankle mortise is disrupted with medial displacement of the tibia in relat ion to the talus. No osteochondral lesions of the talus. IMPRESSION: Acute traumatic transverse fracture of the medial malleolus with intra-articular extension and mild inferior displacement. Segmental oblique fracture of the distal fibular lateral mall eolus with intra-articular extension and slight dorsal displacement of t he distal fracture fragment. Disrupted ankle mortise with medial displacement of the tibia in relation to the talus. Joint fluid. For efoot is unremarkable. AP and lateral view of the ri t leg: The knee joint is preserved. No knee joint fluid. A gain noted fracture of the medial malleolus with inferior displacement a nd intra-articular extension and segmental fractures of the distal fibul a and lateral malleolus with slight dorsal displacement the fracture fragment. Joint fluid. IMPRESSION: Fra ctures of the medial and the lateral malleolus as described. No knee fr acture. PAGE 1 Signed Report (CON TINUED) Name: TASHI PANTOJA [facility] : 1980 Age/S:39 /M [address] [facility] t#:[id number] Loc: [place] [address] Phys: Stephanie Gutiérrez MD 1276 Dis Date: PHONE #: [phone] Status: REG ER FAX #: [phone] Exam Date: 07/25/2019 Reason: fall EXAMS: CPT CODE: [id number] XR FOOT 3 + V RT [id number] <Continued> at 2039 Reported and signed by: Jase Amador M.D. CC: Technologist: RELL LANCASTER RT(R),RDMS,CT Trnscrpt Data: 07/25/2019 (2038) [email or web address] Orig Print D/T: S: 07/25/2019 (2041) PAGE 2 Signed Report
[2020-01-12] MEDS ORDERED: HALOPERIDOL LACTATE 5 MG/ML VIAL ONE (21:35)
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
[2020-01-12] MEDS ORDERED: HALOPERIDOL LACTATE 5 MG/ML VIAL IM ONE (21:45)
[2020-01-12] MEDS ORDERED: MIDAZOLAM HCL 2 MG/2 ML VIAL ONE (21:48)
[2020-01-12] MEDS ORDERED: MIDAZOLAM HCL 2 MG/2 ML VIAL IV STA (22:00)
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
--- NOTE | 2020-01-12 22:43 | NUR ---
Patient sleeping at this time without distress noted.
--- NOTE | 2020-01-12 22:57 | NUR ---
Patient sleeping and no distress noted. Patient arousable and responds to questions when asked.
[2020-01-12 23:45] VITALS: BP 128/83
--- NOTE | 2020-01-12 23:50 | NUR ---
Patient cooperative at this time. Per ER MD patient may be discharged at this time.
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
== END 2020-01-12 23:54 | disposition home or self-care (01) ==
LOC: ER 21:17
DX: S00.83XA Contusion of other part of head, initial encounter (principal); Y35.393A Legal intervention involving other blunt objects, suspect injured, initial encounter; F17.210 Nicotine dependence, cigarettes, uncomplicated
CPT/HCPCS: 70486; 99284; J1630; J2250